=== PATIENT | female | born 1940 | race Caucasian/White ===

== ENCOUNTER → 2020-10-24 | Emergency (ER) | payer MEDICARE, OTHER ==
[~2020-10-24] VITALS: Ht 165.1 cm; Wt 68.2 kg
[~2020-10-24] MED LIST: ACET-812 PO; CEPH250T PO; TETanus/Pertussis (Acell)/Diphther VAC/PF (Tdap-Adult) 0.5ml syringe IMVAC ONE; bacitracin 15gm ointment TP ONE
[2020-10-24 14:10] VITALS: BP 112/56
== END | disposition home or self-care (01) ==
LOC: ER 13:53
DX: S81.812A Laceration without foreign body, left lower leg, initial encounter (principal); Z20.3 Contact with and (suspected) exposure to rabies; Z79.2 Long term (current) use of antibiotics; Z79.899 Other long term (current) drug therapy; W18.39XA Other fall on same level, initial encounter; Y93.89 Activity, other specified; Y92.89 Other specified places as the place of occurrence of the external cause; Y99.8 Other external cause status
CPT/HCPCS: 73590; 90471; 90715; 99284